=== PATIENT | male | born 2000 | race Caucasian/White ===

== ENCOUNTER 2023-04-03 00:15 | Emergency (ER) | payer OTHER, SELFPAY ==
[2023-04-02 23:08] VITALS: BP 166/98
[2023-04-03] VITALS (12 sets, daily range): BP systolic 127–166; BP diastolic 77–98; PULSE 92–145; RESP 11–22; TEMP 37.3; O2SAT 91–100
--- NOTE | 2023-04-03 00:44 | ECG_ITS ---
The [facility] Test Date: 2023-04-03 Pat Name: Sumanth Deng Department: Room: - Gender: Male Permanent Waver: : 2000 Requested By: RENETTA WILCOX Order Number: [id number] Reading MD: KENZIE HUERTA Measurements Intervals [place] Rate: 125 P: 72 [place]: 150 QRS: 101 QRSD: 94 T: 40 QT: 318 QTc: 392 Interpretive Statements 1120 Sinus tachycardia 7100 Abnormal right axis deviation 9140 abnormal rhythm ECG No previous ECG available for comparison Electronically Signed On 04-06-2023 7:01:27 EST by KENZIE HUERTA
--- NOTE | 2023-04-03 00:44 | XR_ITS ---
The [address] [address] Patient Name: EBER ROBERTS MRN: [id number] date: 2000 Sex: M Assigned Patient Location: ER Current Patient Location: ER Accession/Order Number: [id number] Exam Date: 04/03/2023 01:03 Report Date: 04/03/2023 01:59 At the request of: BRADLEY PAREKH Procedure: XR chest 1V EXAMINATION:XR chest 1V INDICATION:AMS COMPARISON:02/02/2020 TECHNIQUE:A single frontal view of the chest is submitted. FINDINGS: The cardiomediastinal silhouette is not enlarged. The pulmonary vascularity is within normal limits. The lungs are clear based on chest radiography. There is no costophrenic angle blunting. XR/XR chest 1V IMPRESSION: Unremarkable plain film examination of the chest. Electronically authenticated by: TAZ BERRY Date: 04/03/2023 01:59
--- NOTE | 2023-04-03 00:44 | CT_ITS ---
The [address] [address] Patient Name: EBER ROBERTS MRN: [id number] date: 2000 Sex: M Assigned Patient Location: ER Current Patient Location: .[facility] Accession/Order Number: [id number] Exam Date: 04/03/2023 01:03 Report Date: 04/03/2023 00:13 At the request of: BRADLEY PAREKH Procedure: CT head/brain wo con EXAM: CT head/brain wo con CLINICAL INDICATION: AMS COMPARISON: CT head 12/23/2018 TECHNIQUE: Axial CT images of the brain were obtained without contrast. Dose reduction techniques were achieved by using automated exposure control and/or adjustment of mA and/or kV according to patient size and/or use of iterative reconstruction technique. FINDINGS: Brain parenchyma: No mass effect or midline shift is seen. Shields-white differentiation is maintained. No findings suspicious for intracranial hemorrhage. No findings suggesting acute stroke. Ventricles and extra-axial spaces: Ventricles are concordant with sulci. No findings suggesting hydrocephalus. Visualized paranasal sinuses: No findings suggesting acute sinusitis. Mastoid air cells: Clear. Included portions of the orbits:Included portions of the orbits with no evidence of fracture or other acute pathology. Bones: No fracture is seen. CT/CT head/brain wo con Impression: 1. No acute intracranial process. Electronically authenticated by: MERON JIMENEZ Date: 04/03/2023 00:13
[2023-04-03 01:04] LABS: Hematocrit 43.7 % (42.0-54.0); Hemoglobin 15.3 g/dL (14.0-18.0); Mean Corpuscular Hemoglobin 30.8 pg (25.9-34.0); Mean Corpuscular Volume 87.9 fL (80.0-94.0); Mean Platelet Volume 9.6 fL (9.5-13.5); Platelet Count 306 10^3/uL (150-450); Red Blood Count 4.97 10^6/uL (4.70-6.10); Red Cell Distribution Width 12.3 % (11.0-15.0); White Blood Count 23.3 10^3/uL (4.0-11.0)
[2023-04-03 01:07] LABS: Bilirubin Urine NEGATIVE (NEGATIVE); Blood Urine NEGATIVE (NEGATIVE); Clarity Urine CLEAR (CLEAR); Color Urine YELLOW (YELLOW); Glucose Urine UA 250 mg/dL (NEGATIVE); Ketones Urine TRACE mg/dL (NEGATIVE); Leukocyte Esterase Urine NEGATIVE (NEGATIVE); Nitrite Urine NEGATIVE (NEGATIVE); Protein Urine 100 mg/dL (NEG/TRACE); Specific Gravity Urine >=1.030 (1.005-1.025); Urobilinogen Urine 0.2 EU/dL (0.2-1.0); pH Urine 5.5 (5.0-9.0)
[2023-04-03 01:09] LABS: Urine Microscopic Indicated YES
[2023-04-03 01:15] LABS: Bacteria Urine TRACE #/HPF (NONE SEEN); Cast Seen? SEEN #/LPF (NONE SEEN); Crystals Seen? None Seen #/HPF (None Seen); Mucus Urine SMALL (NONE SEEN); RBC Urine 0-2 #/HPF (0-2); Squamous Epithelial Cell Urine RARE #/LPF (NONE/RARE); WBC Urine 0-2 #/HPF (NONE SEEN)
[2023-04-03 01:16] LABS: Fine Granular Casts Urine RARE; Hyaline Casts Urine FEW; Urine Culture Indicated NO; Waxy Casts Urine RARE
[2023-04-03 01:17] LABS: INR 1.02; Prothrombin Time 10.8 sec (9.0-11.6); Salicylate 2.9 mg/dL (<=19.9)
[2023-04-03 01:17] LABS: Amphetamine Screen Urine NEGATIVE (NEGATIVE); Barbiturates Screen Urine NEGATIVE (NEGATIVE); Benzodiazepines Screen Urine NEGATIVE (NEGATIVE); Buprenorphine Screen Urine NEGATIVE (NEGATIVE); Cannabinoid Screen Urine NEGATIVE (NEGATIVE); Cocaine Screen Urine NEGATIVE (NEGATIVE); Methadone Screen Urine NEGATIVE (NEGATIVE); Methamphetamines Screen Urine NEGATIVE (NEGATIVE); Opiate Screen Urine NEGATIVE (NEGATIVE); Oxycodone Screen Urine NEGATIVE (NEGATIVE); Phencyclidine Screen Urine NEGATIVE (NEGATIVE); Tricyclic Antidepressant Urine NEGATIVE (NEGATIVE)
[2023-04-03 01:18] LABS: Acetaminophen <2.0 ug/mL (10.0-30.0)
[2023-04-03 01:20] LABS: Alanine Aminotransferase 17 U/L (16-63); Albumin Globulin Ratio 1.4; Albumin Level 4.6 g/dL (3.4-5.0); Alkaline Phosphatase 94 U/L (46-116); Anion Gap 15.1; Aspartate Amino Transferase 23 U/L (15-37); BUN Creatinine Ratio 12.3; Bilirubin Total 0.3 mg/dL (0.2-1.0); Calcium 9.5 mg/dL (8.5-10.1); Carbon Dioxide 22.5 mmol/L (21.0-32.0); Chloride 98 mmol/L (98-107); Estimated GFR (African America >60 (>=60); Estimated GFR (Non-African Ame 54 (>=60); Ethanol <3 mg/dL; Globulin 3.2 g/dL; Glucose 299 mg/dL (74-106); Potassium 3.6 mmol/L (3.5-5.1); Sodium 132 mmol/L (136-145); Total Protein 7.8 g/dL (6.4-8.2)
[2023-04-03 01:28] LABS: Atypical Lymphocytes Abs Man 0.5; Lymphocytes Absolute Manual 1.39 10^3/uL (1.20-3.80); Monocytes Absolute Manual 1.63 10^3/uL (0.30-0.80)
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
== END 2023-04-03 03:30 ==
PROVIDERS: Emergency Provider Student in an Organized Health Care Education/Training Program; PCP Family Medicine
DX: F16.929 Hallucinogen use, unspecified with intoxication, unspecified (principal); R45.1 Restlessness and agitation; F17.210 Nicotine dependence, cigarettes, uncomplicated
CPT/HCPCS: 36415; 70450; 71045; 80053; 80179; 80307; 80320; 80329; 81001; 85027; 85610; 93005; 99285